=== PATIENT | female | born 1955 | race Caucasian/White ===

== ENCOUNTER 2018-12-20 05:32 | Outpatient (CLI) | payer MEDICARE ==
[~2018-12-20] VITALS: Ht 165 cm; Wt 88.6 kg
[2018-12-20] MEDS ORDERED: URSO300C3 PO (10:56)
[2018-12-20] MEDS ORDERED: RIFA550T PO (10:56)
[2018-12-20] MEDS ORDERED: CA C1TAB75 PO (10:56)
[2018-12-20] MEDS ORDERED: ZINC220C7 PO (10:56)
[2018-12-20] MEDS ORDERED: ACET-2267 PO (10:56)
[2018-12-20] MEDS ORDERED: ASPI-586 PO (10:56)
[2018-12-20] MEDS ORDERED: LEVO50TA6 PO (10:56)
[2018-12-20] MEDS ORDERED: OBET5TAB PO (10:56)
[2018-12-20] MEDS ORDERED: OMEP40CA36 PO (10:56)
[2018-12-20] MEDS ORDERED: PROP10TA8 PO (10:56)
[2018-12-20] MEDS ORDERED: DICY10CA12 PO (10:56)
[2018-12-20] MEDS ORDERED: FESO4TAB PO (10:56)
[2018-12-20] MEDS ORDERED: CARV25TA PO (10:56)
[2018-12-20] MEDS ORDERED: LISI-552 PO (10:56)
[2018-12-20] MEDS ORDERED: FENO145T37 PO (10:56)
[2018-12-22] MEDS ORDERED: ACHD5005 PO (16:04)
== END 2018-12-20 11:08 | disposition home or self-care (01) ==
LOC: PREOP 05:32
PROVIDERS: ATTEND Surgery
DX: Z01.818 Encounter for other preprocedural examination (principal)

== ENCOUNTER 2018-12-22 10:19 | Day surgery (SDC) | payer MEDICARE, OTHER ==
[2018-12-22] VITALS (13 sets, daily range): BP systolic 128–169; BP diastolic 70–97
[~2018-12-22] VITALS: Ht 165 cm; Wt 88.6 kg
[~2018-12-22 10:19] MED LIST: ACET-2267 PO; ASPI-586 PO; CA C1TAB75 PO; CARV25TA PO; DICY10CA12 PO; FENO145T37 PO; FESO4TAB PO; LEVO50TA6 PO; LISI-552 PO; OBET5TAB PO; OMEP40CA36 PO; PROP10TA8 PO; RIFA550T PO; URSO300C3 PO; ZINC220C7 PO
[2018-12-22] MEDS ORDERED: ONDANSETRON 4 MG/2 ML (SDV) Z0FRAN ONE (10:43)
[2018-12-22] MEDS ORDERED: DEXAMETHASONE 10 MG/ML (DECADRON) 1 ML VIAL ONE (10:43)
[2018-12-22] MEDS ORDERED: proPOfol 200 MG/20 ML (DIPRIVAN) VIAL IV ONE (10:43)
[2018-12-22] MEDS ORDERED: LIDOCAINE PF 2% 5 ML (XYLOCAINE) VIAL ONE (10:43)
[2018-12-22] MEDS ORDERED: SEVOFLURANE (ULTANE) 15 ML INHAL SOLN ONE (10:43)
[2018-12-22] MEDS ORDERED: LACTATED RINGERS 1,000 ML IV PRN (10:43)
[2018-12-22] MEDS ORDERED: MIDAZOLAM 2 MG/2 ML (VERSED) VIAL ONE (10:44)
[2018-12-22] MEDS ORDERED: fentaNYL INJECTION 100 MCG/2 ML AMP ONE (10:44)
[2018-12-22] MEDS ORDERED: ceFAZolin INJECTION 1,000 MG in WATER (STERILE) FOR INJECTION 10 ML IV ONE (10:45)
[2018-12-22] MEDS ORDERED: MUPIROCIN 2% OINT 22 GM (BACTROBAN) TUBE ONE (10:50)
[2018-12-22] MEDS ORDERED: BUP/EPI 0.5% 1:200,000 (SENSORCAINE) 30 ML VIAL ONE (10:50)
[2018-12-22] MEDS ORDERED: PROMETHAZINE INJ 25 MG/ML (PHENERGAN) AMP IVP ONE (13:00)
[2018-12-22] MEDS ORDERED: MEPERIDINE (DEMEROL) INJ 50 MG/ML IVP ONE (13:00)
[2018-12-22] MEDS ORDERED: fentaNYL INJECTION 100 MCG/2 ML AMP IVP ONE (13:00)
[2018-12-22] MEDS ORDERED: ONDANSETRON 4 MG/2 ML (SDV) Z0FRAN IVP PRN (13:00)
--- NOTE | 2018-12-22 14:00 | NUR ---
PATIENT COMPLAINING OF CHEST PAIN, EKG OBTAINED PER ORDERED BY DR. CRUZ.
[2018-12-22] MEDS ORDERED: fentaNYL INJECTION 250 MCG/5 ML AMP IVP ONE (14:15)
--- NOTE | 2018-12-22 14:45 | NUR ---
PATIENT RECEIVED FENTANYL 25MCG IV X1. CHEST PAIN IMPROVED.
--- NOTE | 2018-12-22 14:50 | Progress Note-Pre Operative ---
Pre-Operative Progress Note H&P Reviewed The H&P was reviewed, patient examined and no changes noted. 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
--- NOTE | 2018-12-22 14:51 | Progress Note-Post Operative ---
Post-Operative Progess Note Surgeon (s)/Hcc Coders (s) Surgeon MALACHI SIGALA DO Hcc Coders: ALEJANDRA DonatoII Pre-Operative Diagnosis Squamous Cell CA of deep margin previous excision Post-Operative Diagnosis same pending path Procedure & Operative Findings Date of Procedure 12/22/18 Procedure Performed/Findings Wide local excision of Squamous Cell CA, 3.7 x 1.7cm Anesthesia Type LMA Estimated Blood Loss Estimated blood loss (mL): scant Specimens/Packing Specimens Removed scalp mass and tissue down to skull MALACHI SIGALA DO Dec 22, 2018 14:51 POS
--- NOTE | 2018-12-22 14:52 | Discharge Inst-Surgical ---
Discharge Inst-Surgical Depart Medication/Instructions New, Converted or Re-Newed RX: Other (No Rx needed) Activity Activity as Tolerated: Yes Activity Instructions: Avoid Stress to Incision Driving Instructions: No Driving/Refer to Dr. Snider Discharge Diet: No Restrictions Diet After 24 Hours: Clear Liquid if Nauseous If Any Problems/Questions/Issu: Contact Your Physician, Go to Emergency Room Skin/Wound Care Infection Signs and Symptoms: Increased Redness, Foul Odor of Wound, Increased Drainage, Skin Itchy or Has a Rash, Increased Swelling, Temperature Above 101 F Bathing Instructions: Shower Stitches/Sajan/Dermabond Dis: Care of Stitches MALACHI SIGALA DO Dec 22, 2018 14:52 POS
--- NOTE | 2018-12-22 15:29 | Anesthesia-General Post-Op ---
General Patient Condition Mental Status/LOC: Same as Preop Cardiovascular: Satisfactory Nausea/Vomiting: Absent Respiratory: Satisfactory Pain: Controlled (see below) Complications: Absent Post Op Complications Complications None Follow Up Care/Instructions Patient Instructions None needed. Anesthesia/Patient Condition Patient Condition Patient is doing well, stable vital signs, no apparent adverse anesthesia problems. She was C/O a sharp, constant chest pain in SDC after an uneventful stay in PACU. An EKG was ordered and showed NSR. Fentanyl 25 mcg IV was ordered. Pt then stated CP was no longer constant and seemed somewhat improved. She and family are wanting to be discharged to home. I discussed with them that if the CP became more cardiac in nature (radiation into Left arm or chin) they needed to go immediately to the emergency room, and agreed to do so. We will be available if needed. JACKSON CRUZ DO Dec 22, 2018 15:29 POS
[2018-12-22] MEDS ORDERED: ACHD5005 PO (16:04)
--- NOTE | 2018-12-22 16:30 | NUR ---
DR. CRUZ CAME TO SEE PATIENT, PATIENT'S CHEST PAIN GONE. PATIENT'S STATES SHE GETS IT OFF AND ON AT HOME. OKAY TO DISCHARGE PATIENT.
--- NOTE | 2018-12-22 22:37 | OPERATIVE REPORT ---
DATE OF SERVICE: 12/22/2018 PREOPERATIVE DIAGNOSIS: Squamous cell cancer of the scalp. POSTOPERATIVE DIAGNOSIS: Squamous cell cancer of the scalp. PROCEDURE: Excision of squamous cell cancer 3.7 cm x 1.7 cm excision down to the skull. SURGEON: Ebenezer Bravo DO. LEAD SOLUTIONS ARCHITECT: RELL Donato. ANESTHESIA: LMA. SPECIMEN: Posterior scalp mass. BLOOD LOSS: Scant. FLUIDS: Per anesthesia. POSTOPERATIVE CONDITION: Stable. INDICATION FOR PROCEDURE: The patient is a 63-year-old female who had a mass on top of her head, more posterior that had a shave excision, came back as squamous cell. She then had a wide local excision, but came back with still deep margin was positive. She had a large, wider, deeper excision. FINDINGS: The patient had an excision of the scalp mass. When opened, it was 3.7 x 1.7 cm. It was all the way down to the skull. We then tried to do some advancement flaps to be able to get this back. PROCEDURE NOTE: After informed consent was obtained, the patient was brought to the operating room, placed on the table in supine position, shaved some of the hair around the area. She was then sterilely prepped and draped in normal fashion. Local lidocaine was used to infiltrate the skin and then made an elliptical incision around the previous incision and taking it all the way down to the skull using #15 blade, when we finally opened the whole thing it was measured about 3.7 cm long x about 1.7 cm wide. This was passed off table, marked with one stitch at the 3 o'clock position and two stitches at the 12 o'clock position and then sent to pathology. Once this was removed, then grasped the skin and then dissected under the skin, but above the galea to try and get created advancement flap anteriorly towards the face and posteriorly towards the back of the head then tried to bring the tissue together used four 2-0 Prolene vertical mattress suture and one simple suture. Unfortunately, even with the advancement flaps it was very tight and unable to get it to pull all the way together so there is a small probably 4 mm x 3 mm opening that was down to the skull. Area was cleaned and dried, then placed Xeroform gauze and then Telfa and then a dressing. The patient tolerated the procedure and transferred to recovery room in stable condition. Sponge, instrument and needle count correct at the end of the case. Job ID: [id number] DocumentID: [id number] Dictated Date: 12/22/2018 17:21:09 Plaque Maker Date: 12/22/2018 22:37:08 Dictated By: DO HUMBERTO LANTIGUA
== END 2018-12-22 16:30 | disposition home or self-care (01) ==
LOC: SDC 10:19
PROVIDERS: ATTEND Surgery
DX: C44.42 Squamous cell carcinoma of skin of scalp and neck (principal); L90.5 Scar conditions and fibrosis of skin; Z11.2 Encounter for screening for other bacterial diseases; I10 Essential (primary) hypertension; K74.5 Biliary cirrhosis, unspecified; R07.9 Chest pain, unspecified; Z88.5 Allergy status to narcotic agent; Z87.891 Personal history of nicotine dependence; E78.5 Hyperlipidemia, unspecified; J45.909 Unspecified asthma, uncomplicated; E03.9 Hypothyroidism, unspecified; Z79.82 Long term (current) use of aspirin; Z79.899 Other long term (current) drug therapy
CPT/HCPCS: 87081; 93005

== ENCOUNTER → 2019-04-07 | Outpatient (CLI) | payer MEDICARE, OTHER ==
[~2019-04-07] MED LIST changes: +ACHD5005 PO; +OMEP40CA27 PO; -OMEP40CA36 PO
== END | disposition home or self-care (01) ==
LOC: PREOP 05:32
PROVIDERS: ATTEND Urology
DX: Z01.818 Encounter for other preprocedural examination (principal)

== ENCOUNTER 2020-08-15 05:42 | Outpatient (CLI) | payer MEDICARE, OTHER ==
[~2020-08-15] VITALS: Ht 167.7 cm; Wt 76.4 kg
[~2020-08-15 05:42] MED LIST changes: +FENO145T26 PO; -FENO145T37 PO; -LISI-552 PO; +LISI20TA26 PO; -OMEP40CA27 PO; +OMEP40CA6 PO
[2020-08-15] MEDS ORDERED: LACT10SO3 PO (13:57)
[2020-08-15] MEDS ORDERED: ASCO100024 PO (13:57)
[2020-08-15] MEDS ORDERED: L.AC1CAP6 PO (13:57)
[2020-08-15] MEDS ORDERED: FURO20TA4 PO (13:57)
== END 2020-08-15 14:11 | disposition home or self-care (01) ==
LOC: PREOP 05:42
PROVIDERS: ATTEND Urology
DX: Z01.818 Encounter for other preprocedural examination (principal)

== ENCOUNTER 2020-08-22 05:51 | Day surgery (SDC) | payer MEDICARE, OTHER ==
[2020-08-22] VITALS (10 sets, daily range): BP systolic 103–173; BP diastolic 56–92
[~2020-08-22] VITALS: Ht 167.7 cm; Wt 76.4 kg
[~2020-08-22 05:51] MED LIST changes: +ASCO100024 PO; +FURO20TA4 PO; +L.AC1CAP6 PO; +LACT10SO3 PO
[2020-08-22] MEDS ORDERED: cefTRIAXone 1,000 MG in WATER (STERILE) FOR INJECTION 10 ML IV ONE (06:15)
[2020-08-22] MEDS ORDERED: LACTATED RINGERS 1,000 ML IV PRN (06:15)
[2020-08-22] MEDS ORDERED: ONBOTOX 100 UNITS/NS 10 ML INJ ONE ×2 (07:00)
[2020-08-22 07:01] LABS: ALBUMIN 3.8 GM/DL (3.2-4.5)
[2020-08-22 07:02] LABS: POTASSIUM 4.3 MMOL/L (3.6-5.0)
[2020-08-22 07:03] LABS: CALCIUM 9.4 MG/DL (8.5-10.1)
[2020-08-22] MEDS ORDERED: MIDAZOLAM 2 MG/2 ML (VERSED) VIAL ONE (07:03)
[2020-08-22] MEDS ORDERED: ONDANSETRON 4 MG/2 ML (SDV) Z0FRAN ONE (07:03)
[2020-08-22] MEDS ORDERED: fentaNYL INJ 100 MCG/2 ML AMP ONE (07:03)
[2020-08-22] MEDS ORDERED: proPOfol 200 MG/20 ML (DIPRIVAN) VIAL IV ONE (07:03)
[2020-08-22] MEDS ORDERED: LIDOCAINE PF 2% 5 ML (XYLOCAINE) VIAL ONE (07:03)
[2020-08-22 07:04] LABS: TOTAL PROTEIN 6.7 GM/DL (6.4-8.2)
[2020-08-22 07:06] LABS: BILIRUBIN,TOTAL 0.6 MG/DL (0.1-1.0)
[2020-08-22 07:08] LABS: CREATININE SERUM 1.18 MG/DL (0.60-1.30)
[2020-08-22] MEDS ORDERED: 0.9% SODIUM CHLORIDE PF INJ 20 ML VIAL ONE (07:11)
--- NOTE | 2020-08-22 07:19 | Progress Note-Pre Operative ---
Pre-Operative Progress Note H&P Reviewed The H&P was reviewed, patient examined and no changes noted. Date Seen by Provider: Aug 22, 2020 Time Seen by Provider: 07:18 Date H&P Reviewed: Aug 22, 2020 Time H&P Reviewed: 07:18 Pre-Operative Diagnosis: INTRACTABLE URGENCY, OAB, AND INCONTINENCE VELVET PAGE MD Aug 22, 2020 07:19
--- NOTE | 2020-08-22 07:20 | Progress Note-Post Operative ---
Post-Operative Progess Note Surgeon (s)/Sales Stock Associate (s) Surgeon VELVET PAGE MD Sales Stock Associate: NONE Pre-Operative Diagnosis INTRACTABLE URGENCY, OAB, AND INCONTINENCE Post-Operative Diagnosis SAME Procedure & Operative Findings Date of Procedure 08/22/20 Procedure Performed/Findings ENDOSCOPIC BOTOX INJECTIONS Anesthesia Type GENERAL Estimated Blood Loss Estimated blood loss (mL): NONE Specimens/Packing Specimens Removed NONE Packing: NONE VELVET PAGE MD Aug 22, 2020 07:20
--- NOTE | 2020-08-22 07:22 | Discharge Inst-Urology ---
Discharge Inst-Urology Reconcile Patient Problems Problems Reviewed?: Yes Final Diagnosis INTRACTABLE URGENCY WITH WET OAB Patient Instructions/Follow Up Plan/Assessment/Instructions Please make appointment to been seen in office in 4 weeks. In 48 hours, if no bleeding, may resume ASA Increase oral fluids for 48 hours and then as needed. Diet and Activity as tolerated. If questions or concerns contact your physician Or seek help at emergency department. VELVET PAGE MD Aug 22, 2020 07:22
[2020-08-22] MEDS ORDERED: SEVOFLURANE (ULTANE) 15 ML INHAL SOLN ONE (07:52)
[2020-08-22] MEDS ORDERED: fentaNYL INJ 100 MCG/2 ML AMP IVP ONE (08:15)
[2020-08-22] MEDS ORDERED: ONDANSETRON 4 MG/2 ML (SDV) Z0FRAN IVP PRN (08:15)
[2020-08-22] MEDS ORDERED: NITR-65 PO ×2 (09:03→09:10)
[2020-08-22] MEDS ORDERED: PHEN-639 PO (09:10)
--- NOTE | 2020-08-22 09:11 | Anesthesia-General Post-Op ---
General Patient Condition Mental Status/LOC: Same as Preop Cardiovascular: Satisfactory Nausea/Vomiting: Absent Respiratory: Satisfactory Pain: Controlled Complications: Absent Post Op Complications Complications None Follow Up Care/Instructions Patient Instructions None needed. Anesthesia/Patient Condition Patient Condition Patient is doing well, no complaints, stable vital signs, no apparent adverse anesthesia problems. JACKSON CRUZ DO Aug 22, 2020 09:11
--- NOTE | 2020-08-22 10:44 | OPERATIVE REPORT ---
DATE OF SERVICE: 08/22/2020 PREOPERATIVE DIAGNOSES: Intractable urgency with overactive bladder and incontinence. POSTOPERATIVE DIAGNOSES: Intractable urgency with overactive bladder and incontinence. OPERATION PERFORMED: Endoscopic Botox injections. SURGEON: Tyler Page MD ANESTHESIA: General. COMPLICATIONS: None. DESCRIPTION OF PROCEDURE: Under satisfactory general anesthesia, the patient in lithotomy position, genitalia were prepped and draped in the usual sterile fashion. Cystoscope was introduced in the bladder and the bladder was filled half and then Botox was injected in 20 sites 0.5 mL per site for a total of 100 units using the described technique. There was very minimal bleeding. Bladder was evacuated. The cystoscope was removed. The patient tolerated the procedure and anesthesia well and was sent to recovery room in stable condition. Job ID: [id number] DocumentID: [id number] Dictated Date: 08/22/2020 07:59:33 Finance Attorney Date: 08/22/2020 10:43:14 Dictated By: TYLER PAGE MD
== END 2020-08-22 09:50 ==
LOC: SDC 05:51
PROVIDERS: ATTEND Urology
DX: N32.81 Overactive bladder (principal); N39.41 Urge incontinence; I10 Essential (primary) hypertension; J44.9 Chronic obstructive pulmonary disease, unspecified; E03.9 Hypothyroidism, unspecified; K21.9 Gastro-esophageal reflux disease without esophagitis; K76.0 Fatty (change of) liver, not elsewhere classified; R51.9 Headache, unspecified; Z79.899 Other long term (current) drug therapy; Z79.82 Long term (current) use of aspirin; Z79.891 Long term (current) use of opiate analgesic; Z79.890 Hormone replacement therapy
CPT/HCPCS: 36415; 80053; 87081

== ENCOUNTER 2021-04-10 05:32 | Outpatient (CLI) | payer MEDICARE, OTHER ==
[~2021-04-10] VITALS: Ht 167.7 cm; Wt 77.3 kg
[~2021-04-10 05:32] MED LIST changes: +NITR-65 PO; +PHEN-639 PO
[2021-04-10] MEDS ORDERED: ASPI-1238 PO (15:01)
[2021-04-10] MEDS ORDERED: ALBU90AE2 IH (15:01)
[2021-04-10] MEDS ORDERED: CETI10CA PO (15:01)
[2021-04-10] MEDS ORDERED: AMIO200T65 PO (15:01)
[2021-04-10] MEDS ORDERED: CHOL-11 PO (15:01)
[2021-04-10] MEDS ORDERED: ZINC50TA51 PO (15:01)
[2021-04-10] MEDS ORDERED: ESTR0.5T3 PO (15:01)
== END 2021-04-10 15:14 | disposition home or self-care (01) ==
LOC: PREOP 05:32
PROVIDERS: ATTEND Urology
DX: Z01.818 Encounter for other preprocedural examination (principal)

== ENCOUNTER 2021-04-17 05:58 | Day surgery (SDC) | payer MEDICARE, OTHER ==
[~2021-04-17] VITALS: Ht 167 cm; Wt 77.3 kg
[2021-04-17] VITALS (10 sets, daily range): BP systolic 119–132; BP diastolic 60–73
[~2021-04-17 05:58] MED LIST changes: +ALBU90AE2 IH; +AMIO200T65 PO; +ASPI-1238 PO; +CETI10CA PO; +CHOL-11 PO; +ESTR0.5T3 PO; +ZINC50TA51 PO
[2021-04-17] MEDS ORDERED: cefTRIAXone 1 GM PRE-MIX 50 ML IV ONE ×2 (06:15→06:48)
[2021-04-17] MEDS ORDERED: LACTATED RINGERS 1,000 ML IV PRN (06:15)
[2021-04-17] MEDS ORDERED: ONABOTULINUMTOXINA 100 UNIT (BOTOX) VIAL INJ ONE (06:30)
--- NOTE | 2021-04-17 07:07 | Progress Note-Pre Operative ---
Pre-Operative Progress Note H&P Reviewed The H&P was reviewed, patient examined and no changes noted. Date Seen by Provider: Apr 17, 2021 Time Seen by Provider: 07:07 Date H&P Reviewed: Apr 17, 2021 Time H&P Reviewed: 07:07 Pre-Operative Diagnosis: OAB WITH URGENCY AND INCONTINENCE VELVET PAGE MD Apr 17, 2021 07:07
[2021-04-17] MEDS ORDERED: proPOfol 200 MG/20 ML (DIPRIVAN) VIAL IV ONE (07:08)
[2021-04-17] MEDS ORDERED: LIDOCAINE PF 2% 5 ML (XYLOCAINE) VIAL ONE (07:08)
[2021-04-17] MEDS ORDERED: ONDANSETRON 4 MG/2 ML (SDV) Z0FRAN ONE (07:08)
[2021-04-17] MEDS ORDERED: fentaNYL INJ 100 MCG/2 ML AMP ONE (07:09)
[2021-04-17] MEDS ORDERED: MIDAZOLAM 2 MG/2 ML (VERSED) VIAL ONE (07:09)
[2021-04-17] MEDS ORDERED: 0.9% SODIUM CHLORIDE PF INJ 20 ML VIAL ONE (07:14)
--- NOTE | 2021-04-17 07:15 | Progress Note-Post Operative ---
Post-Operative Progess Note Surgeon (s)/Coke Crane Operator (s) Surgeon VELVET PAGE MD Coke Crane Operator: NONE Pre-Operative Diagnosis OAB WITH URGENCY AND INCONTINENCE Post-Operative Diagnosis SAME Procedure & Operative Findings Date of Procedure 04/17/21 Procedure Performed/Findings ENDOSCOPIC BOTOX INJECTIONS Anesthesia Type GENERAL Estimated Blood Loss Estimated blood loss (mL): NEGLIGIBLE Specimens/Packing Specimens Removed NONE Packing: NONE VELVET PAGE MD Apr 17, 2021 07:15
--- NOTE | 2021-04-17 07:17 | Discharge Inst-Urology ---
Discharge Inst-Urology Reconcile Patient Problems Problems Reviewed?: Yes Final Diagnosis OAB WITH URGENCY AND INCONTINENCE Patient Instructions/Follow Up Plan/Assessment/Instructions Please make appointment to been seen in office in 4 weeks. Rest for 72 hours In 72 hours, if no bleeding, may resume ASA Increase oral fluids for 48 hours and then as needed. Keep bowels soft and moving Diet as tolerated. If questions or concerns contact your physician Or seek help at emergency department. VELVET PAGE MD Apr 17, 2021 07:17
[2021-04-17] MEDS ORDERED: ONDANSETRON 4 MG/2 ML (SDV) Z0FRAN IVP PRN (08:15)
[2021-04-17] MEDS ORDERED: fentaNYL INJ 100 MCG/2 ML AMP IVP ONE (08:15)
[2021-04-17] MEDS ORDERED: SEVOFLURANE (ULTANE) 15 ML INHAL SOLN ONE (08:33)
[2021-04-17] MEDS ORDERED: NITR-65 PO (09:51)
[2021-04-17] MEDS ORDERED: PHEN-640 PO (09:51)
--- NOTE | 2021-04-17 13:01 | OPERATIVE REPORT ---
DATE OF SERVICE: 04/17/2021 PREOPERATIVE DIAGNOSIS: Overactive bladder with urgency and incontinence. POSTOPERATIVE DIAGNOSIS: Overactive bladder with urgency and incontinence. OPERATION PERFORMED: Endoscopic Botox injection. SURGEON: Tyler Page MD ANESTHESIA: General. COMPLICATIONS: None. DESCRIPTION OF PROCEDURE: Under satisfactory general anesthesia, the patient in lithotomy position, genitalia were prepped and draped in the usual sterile fashion. Cystoscope was introduced in the bladder. The bladder was half filled and then Botox was injected 0.5 mL in 20 spots starting above and lateral to the orifices. A total of 100 units were injected. There was minimal bleeding. Cystoscope was removed. A manual Valsalva maneuver was negative. I reinserted the scope to empty the bladder. The patient tolerated the procedure and anesthesia well and was sent to recovery room in stable condition. Job ID: [id number] DocumentID: [id number] Dictated Date: 04/17/2021 08:36:25 First Cook Date: 04/17/2021 13:00:13 Dictated By: TYLER PAGE MD
== END 2021-04-17 10:25 | disposition home or self-care (01) ==
LOC: SDC 05:58
PROVIDERS: ATTEND Urology
DX: N39.41 Urge incontinence (principal); N32.81 Overactive bladder
CPT/HCPCS: 87081

== ENCOUNTER 2021-05-06 11:10 | Outpatient (RCR) | payer MEDICARE, OTHER ==
[~2021-05-06 11:10] MED LIST changes: +PHEN-640 PO
[2021-05-06 13:27] LABS: BASOPHILS # (AUTO) 0.1 10^3/uL (0.0-0.1); BASOPHILS % (AUTO) 2 % (0-10); EOSINOPHILS # (AUTO) 0.1 10^3/uL (0.0-0.3); EOSINOPHILS % (AUTO) 5 % (0-10); HEMATOCRIT 31 % (35-52); HEMOGLOBIN 9.3 g/dL (11.5-16.0); LYMPHOCYTES # (AUTO) 0.5 10^3/uL (1.0-4.0); LYMPHOCYTES % (AUTO) 23 % (12-44); MEAN CORPUSCULAR HEMOGLOBIN 26 pg (25-34); MEAN CORPUSCULAR HGB CONC 30 g/dL (32-36); MEAN CORPUSCULAR VOLUME 88 fL (80-99); MONOCYTES # (AUTO) 0.6 10^3/uL (0.0-1.0); MONOCYTES % (AUTO) 26 % (0-12); NEUTROPHILS % (AUTO) 43 % (42-75); PLATELET COUNT 149 10^3/uL (130-400); WHITE BLOOD COUNT 2.2 10^3/uL (4.3-11.0)
== END 2021-05-16 | disposition home or self-care (01) ==
LOC: ONC 11:10
PROVIDERS: ATTEND Internal Medicine
DX: D61.818 Other pancytopenia (principal); K74.3 Primary biliary cirrhosis; I10 Essential (primary) hypertension; E66.9 Obesity, unspecified
CPT/HCPCS: 82525; 82607; 82728; 82746; 83540; 83550; 83921; 84630; 85025; 88184; 88185

== ENCOUNTER 2021-05-20 10:14 | Outpatient (RCR) | payer MEDICARE, OTHER | END 2021-06-15 | disposition home or self-care (01) | LOC: ONC 10:14 | PROVIDERS: ATTEND Internal Medicine | DX: D61.818 Other pancytopenia (principal); K74.3 Primary biliary cirrhosis; I10 Essential (primary) hypertension; E66.9 Obesity, unspecified; D50.9 Iron deficiency anemia, unspecified; E61.0 Copper deficiency | CPT/HCPCS: 99213 ==

== ENCOUNTER 2021-09-09 10:02 | Outpatient (RCR) | payer MEDICARE, OTHER | END 2021-09-15 | disposition home or self-care (01) | LOC: ONC 10:02 | PROVIDERS: ATTEND Internal Medicine | DX: D61.818 Other pancytopenia (principal); K74.3 Primary biliary cirrhosis; D69.59 Other secondary thrombocytopenia; I10 Essential (primary) hypertension; E66.9 Obesity, unspecified | CPT/HCPCS: 99213 ==

== ENCOUNTER 2022-01-15 05:32 | Outpatient (CLI) | payer MEDICARE, OTHER ==
[~2022-01-15] VITALS: Ht 165.1 cm; Wt 77.3 kg
== END 2022-01-15 15:54 | disposition home or self-care (01) ==
LOC: PREOP 05:32
PROVIDERS: ATTEND Urology
DX: Z01.818 Encounter for other preprocedural examination (principal)

== ENCOUNTER 2022-01-21 07:48 | Day surgery (SDC) | payer MEDICARE, OTHER ==
[2022-01-21] VITALS (9 sets, daily range): BP systolic 135–178; BP diastolic 65–100
[~2022-01-21] VITALS: Ht 165 cm; Wt 77.3 kg
--- NOTE | 2022-01-21 07:44 | Progress Note-Pre Operative ---
Pre-Operative Progress Note Date of Available H&P: Jan 21, 2022 Date H&P Reviewed: Jan 21, 2022 Time H&P Reviewed: 08:00 Changes from last HP NONE Pre-Operative Diagnosis: SEVERE URGENCY REFRACTORY TO MEDICAL RX VELVET PAGE MD Jan 21, 2022 07:44
--- NOTE | 2022-01-21 07:48 | Progress Note-Post Operative ---
Post-Operative Progess Note Surgeon (s)/Floor Polisher (s) Surgeon VELVET PAGE MD Floor Polisher: NONE Pre-Operative Diagnosis SEVERE URGENCY REFRACTORY TO MEDICAL RX Post-Operative Diagnosis SAME Procedure & Operative Findings Date of Procedure 01/21/22 Procedure Performed/Findings CYSTOSCOPIC BOTOX INJECTIONS Anesthesia Type GENERAL Estimated Blood Loss Estimated blood loss (mL): NONE Specimens/Packing Specimens Removed NONE Packing: NONE VELVET PAGE MD Jan 21, 2022 07:48
--- NOTE | 2022-01-21 07:49 | Discharge Inst-Urology ---
Discharge Inst-Urology Reconcile Patient Problems Problems Reviewed?: Yes Final Diagnosis SEVERE URGENCY REFRACTORY TO MEDICAL RX Patient Instructions/Follow Up Plan/Assessment/Instructions Please make appointment to been seen in office in 3 weeks. Increase oral fluids for 48 hours and then as needed. Diet and Activity as tolerated. If questions or concerns contact your physician Or seek help at emergency department. VELVET PAGE MD Jan 21, 2022 07:49
[2022-01-21] MEDS ORDERED: cefTRIAXone 1 GM PRE-MIX 50 ML IV ONE (08:00)
[2022-01-21] MEDS ORDERED: LACTATED RINGERS 1,000 ML IV PRN (08:00)
[2022-01-21] MEDS ORDERED: NITR-65 PO (08:50)
[2022-01-21] MEDS ORDERED: PHEN-640 PO (08:50)
[2022-01-21] MEDS ORDERED: 0.9% SODIUM CHLORIDE PF INJ 20 ML VIAL ONE (09:28)
[2022-01-21] MEDS ORDERED: ONDANSETRON 4 MG/2 ML (SDV) Z0FRAN ONE (09:56)
[2022-01-21] MEDS ORDERED: fentaNYL INJ 100 MCG/2 ML AMP ONE (09:56)
[2022-01-21] MEDS ORDERED: LIDOCAINE PF 2% 5 ML (XYLOCAINE) VIAL ONE (09:56)
[2022-01-21] MEDS ORDERED: proPOfol 200 MG/20 ML (DIPRIVAN) VIAL IV ONE (09:56)
[2022-01-21] MEDS ORDERED: fentaNYL INJ 100 MCG/2 ML AMP IVP ONE ×2 (10:00→10:45)
[2022-01-21] MEDS ORDERED: ONDANSETRON 4 MG/2 ML (SDV) Z0FRAN IVP PRN ×2 (10:00→10:45)
[2022-01-21] MEDS ORDERED: ONABOTULINUMTOXINA 100 UNIT (BOTOX) VIAL INJ NR (10:00)
[2022-01-21] MEDS ORDERED: 0.9% SODIUM CHLORIDE PF INJ 20 ML VIAL IJ ONE (10:21)
[2022-01-21] MEDS ORDERED: ISOFLURANE (FORANE) 15 ML/15 MIN INHALATION ONE (10:29)
--- NOTE | 2022-01-21 10:57 | Anesthesia-General Post-Op ---
General Patient Condition Mental Status/LOC: Same as Preop Cardiovascular: Satisfactory Nausea/Vomiting: Absent Respiratory: Satisfactory Pain: Controlled Complications: Absent Post Op Complications Complications None Follow Up Care/Instructions Patient Instructions None needed. Anesthesia/Patient Condition Patient Condition Patient is doing well in PACU with no complaints, stable vital signs, no apparent adverse anesthesia problems. No complications reported per nursing. JACKSON CRUZ DO Jan 21, 2022 10:57
--- NOTE | 2022-01-21 21:12 | OPERATIVE REPORT ---
DATE OF SERVICE: 01/21/2022 PREOPERATIVE DIAGNOSIS: Severe urgency, refractory to medical treatment. POSTOPERATIVE DIAGNOSIS: Severe urgency, refractory to medical treatment. OPERATION PERFORMED: Cystoscopic Botox injection. SURGEON: Tyler Page MD. ANESTHESIA: General. COMPLICATIONS: None. DESCRIPTION OF PROCEDURE: Under satisfactory general anesthesia, the patient in lithotomy position, genitalia were prepped and draped in the usual sterile fashion. Cystoscope was introduced in the bladder. Injection of Botox, total of 100 units 0.5 mL at a time, starting above and lateral to the left ureteral orifice, working towards the right side and again above it and above it using the described technique. Hemostasis was complete. Estimated blood loss was none. I removed the cystoscope and performed a minimal Valsalva maneuver that was negative. I reinserted the scope to enter into the bladder. The patient tolerated the procedure and anesthesia well and was sent to recovery room in stable condition. Job ID: [id number] DocumentID: [id number] Dictated Date: 01/21/2022 10:36:11 Group Work Program Director Date: 01/21/2022 21:10:00 Dictated By: TYLER PAGE MD
== END 2022-01-21 12:10 | disposition home or self-care (01) ==
LOC: SDC 07:48
PROVIDERS: ATTEND Urology
DX: N39.41 Urge incontinence (principal); N32.81 Overactive bladder; Z87.891 Personal history of nicotine dependence; Z95.1 Presence of aortocoronary bypass graft; Z28.310 Unvaccinated for COVID-19
CPT/HCPCS: 87081

== ENCOUNTER 2022-02-24 09:46 | Outpatient (RCR) | payer MEDICARE, OTHER | END 2022-03-18 | disposition home or self-care (01) | LOC: ONC 09:46 | PROVIDERS: ATTEND Internal Medicine | DX: D61.818 Other pancytopenia (principal); K74.3 Primary biliary cirrhosis; I10 Essential (primary) hypertension; E66.9 Obesity, unspecified | CPT/HCPCS: 99213 ==